=== PATIENT | male | born 1945 | race Caucasian/White ===

== ENCOUNTER → 2019-03-26 | Outpatient (CLI) | payer MEDICARE ==
[~2019-03-26] MED LIST: 'PARAFON FORTE500 M1 PO; 'zithromax250 MG PO; ACYCLOVIR400 MG PO; ADVAIR 250/501 EA INH; ALBUTEROL0.09 MG/Ac INH; ALBUTEROL2.5 MG/0.5 INH; AMBIEN10 M1 PO; ASPIRIN325 MG PO; AUGMENTIN 875 M1 TAB PO; BACTRIM DS 8001 TA1 PO; BENZTROPINE1 MG PO; CIPRO500 MG PO; CIPROFLOXACIN500 MG PO; CLARITIN10 MG PO; COGENTIN1 MG PO; DUONEB 3 MG/3 ML3 M1 INH; FIORICET 325 MG1 TAB PO; FLOMAX0.4 MG PO; FLUOXETINE HCL40 MG PO; GRALISE300 M1 PO; HIGH BLOOD PRESSURE; HYDROCODONE BIT1 T11 PO; HYTRIN1 M1 PO; KEFLEX500 MG PO; KLONOPIN0.5 MG PO; LEVOFLOXACIN500 MG PO; LEVOTHYROXIN0.075 MG PO; LEVOTHYROXINE75 MCG PO; LIPITOR40 MG PO; LOMOTIL 60ML 6060 ML PO; LUMIGAN; LUMIGAN 2.5 ML2.5 ML OPH; LUMIGAN50 DRP OPH; MACROBID100 M1 PO; METOPROLOL SR50 MG PO; METOPROLOL SUCC50 M1 PO; MIRAPEX0.5 MG PO; MOBIC15 MG PO; MUCINEX600 MG PO; MYCELEX PO; Motrin,Rufen800 MG PO; NAPROXEN D/R500 MG PO; NEURONTIN300 MG PO; NICODERM C21 MG/242 TD; NICODERM21 MG/24 H TD; NORCO 10-325 T1 EACH PO; NORCO 325 MG-51 TAB PO; NORTRIPTYLINE10 MG PO; NORTRIPTYLINE25 M1 PO; OYSTER SHELL C500 M2 PO; OYSTER SHELL CALCIUM; PERCOCET 325 MG1 TA2 PO; PERCOCET 325 MG1 TA5 PO; PERCOCET 325 MG1 TA7 PO; PHENERGAN W/DM120 ML PO; PREDNICOT10 MG PO; PREDNICOT20 MG PO; PREDNISONE5 MG PO; PROAIR HFA0.09 MG/AC IH; PROAIR HFA0.09 MG/AC INH; PROAIR HFA8.5 GM INH; PROCTOZONE-HC2.5% RC; PROZAC10 MG PO; PROZAC20 MG PO; RISPERDAL1 MG PO; RISPERIDONE1 MG PO; RISPERIDONE4 M1 PO; SEROQUEL100 MG PO; SYNTHROID,LEVO75 MCG PO; THYROID; TOPROL XL50 M1 PO; TRAMADOL HCL50 MG PO; TRAZADONE PO; ULTRAM50 MG PO; VALIUM10 MG PO; VALIUM2 MG PO; VENTOLIN H0.09 MG/AC INH; VICO10300 PO; VISTARIL25 M2 PO; VOLTAREN50 MG PO; ZITHROMAX Z PA250 MG PO; Zofran4 MG PO; [UNRECOGNIZED DRUG - REMARK]; [UNRECOGNIZED DRUG - REMARK]
--- NOTE | ~2019-03-26 | ST ---
[place], [place] EXERCISE STRESS TEST REPORT NAME: MIKE WOOD [facility] #: [id number] UNIT #: [id number] ROOM: DOCTOR: MICHELE DOTY BIRTHDATE: [birth year] DOS: 03/26/2019 INDICATION: Chest pain. PROTOCOL: Walking regadenoson SPECT myocardial perfusion imaging. Baseline EKG showed sinus rhythm with a rate of 63 beats per minute with a right bundle-branch block. Otherwise, normal axis. No resting ST or T-wave abnormalities. Baseline blood pressure was 136/78. At very low intensity exercise, 0.4 mg of regadenoson was injected per protocol. This was followed by radiotracer injection. The patient reported no chest pain. Stress EKG showed no evidence of ischemia and no arrhythmias were noted. IMPRESSION: 1. No evidence of regadenoson-induced ischemia on stress EKG. 2. Baseline right bundle-branch block. 3. Nuclear images will be reported separately. Dr. MICHELE DOTY MD CM:STRESS:EXERCISE STRESS TEST REPORT [id number] MICHELE DOTY
--- NOTE | 2019-03-26 09:40 | NUR ---
INFORMED SIGNED CONSENT OBTAINED FOR LEXISCAN STRESS TEST WITH DR DOTY. RESTING EKG RBBB HR 63 BP 136/78. PULSE OX 99% LUNGS CLEARLY DIMINISHED. PT COMPLETED ONE MINUTE OF A LEXISCAN WALKING PROTCOL WITH PT WALKING AT AT 1.7MPH DOWN TO 1.O MPH. AND RECEIVING LEXISCAN 0.4MG IV OVER 10 SECONDS. NO ARRHYTHMIAS NOTED, NO ST CHANGES SEEN. LAST RECOVERY HR OF 76 BP 126/70. PT IN STABLE CONDITION, AWAITING NUCLEAR IMAGES.
== END | disposition home or self-care (01) ==
LOC: CARD 00:28
DX: R07.9 Chest pain, unspecified (principal); R53.81 Other malaise

== ENCOUNTER → 2019-04-06 | Outpatient (CLI) | payer MEDICARE, MEDICAID ==
[~2019-04-06] MED LIST changes: +LOMOTIL 2.5-0.1 EACH PO; +METOPROLOL TART50 M1 PO; +NORCO 5-325 TA1 EACH PO; +NORTRIPTYLINE H75 M1 PO
--- NOTE | ~2019-04-06 | EKG ---
[place], [place] ELECTROCARDIOGRAM REPORT NAME: MIKE WOOD UNIT #: [id number] ROOM: DOCTOR: EPIPHANY DRAFT REPORT BIRTHDATE: [birth year] [facility] Test Date: 2019-04-06 Test Time: 14:24:12 Pat Name: MIKE WOOD Department: Room: Gender: Net Developer: Ayanna Olmos : 1945 Requested By: RUY OLIVERA Order Number: [id number] Reading MD: Austin Holly Measurements Intervals [place] Rate: 76 P: 52 NE: 182 QRS: 23 QRSD: 130 T: 10 QT: 395 QTc: 445 Interpretive Statements Sinus rhythm Right bundle branch block Baseline wander in lead(s) V2,V3 Electronically Signed On 04-06-2019 12:18:28 PDT by Austin Holly CM:EKGRPT:ELECTROCARDIOGRAM REPORT [id number] RUY ALEMAN DRAFT REPORT RUY OLIVERA MD
[2019-04-06 14:39] LABS: BASO # 0.1 10*3/uL (0.0-0.1); BASO % 0.8 % (0.0-1.0); EOS # 0.2 10*3/uL (0.0-0.4); EOS % 2.6 % (1.0-4.0); HEMATOCRIT 37.7 % (42.0-52.0); HEMOGLOBIN 12.4 g/dl (14.0-18.0); LYMPH # 2.4 10*3/uL (1.3-4.4); LYMPH % 32.3 % (27.0-41.0); MEAN CELL VOLUME 95.2 fl (80.0-94.0); MEAN CORPUSCULAR HGB 31.3 pg (27.0-31.0); MEAN CORPUSCULAR HGB CONC 32.9 g/dl (33.0-37.0); MEAN PLATELET VOLUME 9.8 fl (9.6-12.3); MONO # 0.5 10*3/uL (0.1-1.0); MONO % 7.3 % (3.0-9.0); NEUT # 4.1 10*3/uL (2.3-7.9); NEUT % 56.2 % (47.0-73.0); PLATELET COUNT AUTOMATED 220 10*3/uL (130-400); RED BLOOD COUNT 3.96 10*6/uL (4.50-5.90); RED CELL DISTRI WIDTH 13.2 % (0-14.5); WHITE BLOOD COUNT 7.3 10*3/uL (4.8-10.8)
[2019-04-06 14:49] LABS: ACT PARTIAL THROMBO TIME 25.6 SECONDS (20.0-32.1); INTERNATIONAL NORM RATIO 0.9 (2.0-3.5)
[2019-04-06 14:52] LABS: BUN 25 mg/dl (7-24); CHLORIDE 109 mmol/L (98-107); CREATININE 0.79 mg/dL (0.70-1.30); POTASSIUM 4.1 mmol/L (3.5-5.1); SODIUM 139 mmol/L (136-145)
[2019-04-06 15:42] LABS: BILIRUBIN NEGATIVE (NEGATIVE); BLOOD NEGATIVE (NEGATIVE); CLARITY CLEAR (CLEAR); COLOR YELLOW (YELLOW); GLUCOSE NEGATIVE (NEGATIVE); KETONE NEGATIVE (NEGATIVE); LEUKO ESTERASE NEGATIVE (NEGATIVE); NITRITE NEGATIVE (NEGATIVE); PH 6.5 (5.0-9.0); UROBILINOGEN 0.2 E.U./dl (0.2-1.0)
== END | disposition home or self-care (01) ==
LOC: LAB 13:49
PROVIDERS: Surgery
DX: K80.20 Calculus of gallbladder without cholecystitis without obstruction (principal)

== ENCOUNTER → 2019-04-12 | Day surgery (SDC) | payer MEDICARE, MEDICAID ==
[2019-04-06 14:35] VITALS: BP 122/86
[~2019-04-12] VITALS: Ht 175.2 cm; Wt 77.1 kg
[2019-04-12 07:19] VITALS: BP 126/78
[2019-04-12 09:26] VITALS: BP 144/79
[2019-04-12 09:41] VITALS: BP 135/68
[2019-04-12 09:53] VITALS: BP 123/62
[2019-04-12 10:04] VITALS: BP 136/63
[2019-04-12 10:19] VITALS: BP 123/75
== END | disposition home or self-care (01) ==
LOC: SDC 04-06 14:00
DX: K80.10 Calculus of gallbladder with chronic cholecystitis without obstruction (principal); M19.90 Unspecified osteoarthritis, unspecified site; G43.909 Migraine, unspecified, not intractable, without status migrainosus; G47.00 Insomnia, unspecified; J44.9 Chronic obstructive pulmonary disease, unspecified; E07.9 Disorder of thyroid, unspecified; H40.9 Unspecified glaucoma; I10 Essential (primary) hypertension; F17.210 Nicotine dependence, cigarettes, uncomplicated; Z98.1 Arthrodesis status; F32.9 Major depressive disorder, single episode, unspecified; Z96.649 Presence of unspecified artificial hip joint; Z98.890 Other specified postprocedural states; Z88.1 Allergy status to other antibiotic agents; Z88.8 Allergy status to other drugs, medicaments and biological substances

== ENCOUNTER 2019-07-28 14:21 | Emergency (ER) | payer MEDICARE, MEDICAID ==
[~2019-07-28] VITALS: Ht 175.2 cm; Wt 86.2 kg
[2019-07-28 14:31] VITALS: BP 140/76
[2019-07-28] MEDS ORDERED: NORCO 5-325 TA1 EACH PO (16:28)
== END 2019-07-28 16:25 | disposition home or self-care (01) ==
LOC: ED 14:21
DX: S16.1XXA Strain of muscle, fascia and tendon at neck level, initial encounter (principal); S30.0XXA Contusion of lower back and pelvis, initial encounter; I10 Essential (primary) hypertension; J44.9 Chronic obstructive pulmonary disease, unspecified; Z88.6 Allergy status to analgesic agent; Z88.8 Allergy status to other drugs, medicaments and biological substances; Z88.1 Allergy status to other antibiotic agents; Z79.899 Other long term (current) drug therapy; W01.0XXA Fall on same level from slipping, tripping and stumbling without subsequent striking against object, initial encounter; Y93.89 Activity, other specified; Y92.098 Other place in other non-institutional residence as the place of occurrence of the external cause; Y99.8 Other external cause status

== ENCOUNTER → 2019-07-30 | Outpatient (CLI) | payer MEDICARE, MEDICAID ==
[2019-07-30 09:52] LABS: BASO # 0.1 10*3/uL (0.0-0.1); BASO % 0.6 % (0.0-1.0); EOS # 0.2 10*3/uL (0.0-0.4); EOS % 2.6 % (1.0-4.0); HEMATOCRIT 41.1 % (42.0-52.0); LYMPH # 2.4 10*3/uL (1.3-4.4); LYMPH % 29.7 % (27.0-41.0); MEAN CELL VOLUME 93.2 fl (80.0-94.0); MEAN CORPUSCULAR HGB 29.5 pg (27.0-31.0); MEAN CORPUSCULAR HGB CONC 31.6 g/dl (33.0-37.0); MEAN PLATELET VOLUME 9.4 fl (9.6-12.3); MONO # 0.5 10*3/uL (0.1-1.0); MONO % 5.8 % (3.0-9.0); NEUT # 4.9 10*3/uL (2.3-7.9); NEUT % 60.2 % (47.0-73.0); PLATELET COUNT AUTOMATED 220 10*3/uL (130-400); RED BLOOD COUNT 4.41 10*6/uL (4.50-5.90); RED CELL DISTRI WIDTH 13.6 % (0-14.5); WHITE BLOOD COUNT 8.1 10*3/uL (4.8-10.8)
[2019-07-30 10:24] LABS: ALBUMIN 3.5 gm/dl (3.1-4.5); BUN 16 mg/dl (7-24); CHLORIDE 107 mmol/L (98-107); POTASSIUM 4.7 mmol/L (3.5-5.1); SODIUM 141 mmol/L (136-145)
[2019-07-30 10:31] LABS: ALKALINE PHOSPHATASE 76 U/L (45-117); CREATININE 1.08 mg/dL (0.70-1.30); SGOT/AST 23 IU/L (3-35); SGPT/ALT 35 U/L (12-78); TOTAL PROTEIN 6.9 gm/dL (6.4-8.2)
[2019-07-30 10:33] LABS: ACT PARTIAL THROMBO TIME 25.9 SECONDS (20.0-32.1); INTERNATIONAL NORM RATIO 0.9 (2.0-3.5)
[2019-07-30 11:27] LABS: BILIRUBIN NEGATIVE (NEGATIVE); BLOOD NEGATIVE (NEGATIVE); CLARITY CLOUDY (CLEAR); COLOR YELLOW (YELLOW); GLUCOSE NEGATIVE (NEGATIVE); KETONE NEGATIVE (NEGATIVE); LEUKO ESTERASE 2+ (NEGATIVE); NITRITE POSITIVE (NEGATIVE); PH 6.5 (5.0-9.0); UROBILINOGEN 0.2 E.U./dl (0.2-1.0)
[2019-07-30 13:36] LABS: BACTERIA 3+; CALCIUM OXALATE CRYSTALS 4+; WBC TNTC wbc/hpf (0-5)
== END | disposition home or self-care (01) ==
LOC: LAB 08:54
PROVIDERS: Nurse Practitioner Family
DX: Z12.5 Encounter for screening for malignant neoplasm of prostate (principal); Z01.818 Encounter for other preprocedural examination; I10 Essential (primary) hypertension; R10.9 Unspecified abdominal pain

== ENCOUNTER → 2019-08-13 | Outpatient (CLI) | payer MEDICARE, MEDICAID ==
[~2019-08-13] MED LIST changes: +FINASTERIDE5 M1 PO; +NEURONTIN100 MG PO; +VANCO IV; +ZOSYN 3.373.375 GM/5 IV
[2019-08-13 15:55] LABS: BILIRUBIN NEGATIVE (NEGATIVE); BLOOD NEGATIVE (NEGATIVE); CLARITY CLOUDY (CLEAR); COLOR YELLOW (YELLOW); GLUCOSE NEGATIVE (NEGATIVE); KETONE NEGATIVE (NEGATIVE); LEUKO ESTERASE 2+ (NEGATIVE); NITRITE NEGATIVE (NEGATIVE); SPECIFIC GRAVITY 1.015 (1.005-1.030); UROBILINOGEN 0.2 E.U./dl (0.2-1.0)
[2019-08-13 15:56] LABS: BACTERIA 3+; CALCIUM OXALATE CRYSTALS 1+; WBC 51-100 wbc/hpf (0-5)
== END | disposition home or self-care (01) ==
LOC: LAB 15:03
PROVIDERS: Nurse Practitioner Family
DX: N39.0 Urinary tract infection, site not specified (principal)

== ENCOUNTER 2019-09-10 18:27 | Inpatient (IN) | payer OTHER, MEDICAID ==
[~2019-09-10] VITALS: Ht 175.3 cm; Wt 91.7 kg
[~2019-09-10 18:27] MED LIST changes: -FINASTERIDE5 M1 PO; -NEURONTIN100 MG PO; -VANCO IV; -ZOSYN 3.373.375 GM/5 IV
[2019-09-10 18:30] VITALS: BP 118/71
--- NOTE | 2019-09-10 18:56 | NUR ---
BG 131 PER EMS
[2019-09-10 19:26] LABS: BASO # 0.1 10*3/uL (0.0-0.1); BASO % 0.8 % (0.0-1.0); EOS # 0.2 10*3/uL (0.0-0.4); EOS % 3.5 % (1.0-4.0); HEMATOCRIT 34.5 % (42.0-52.0); HEMOGLOBIN 11.4 g/dl (14.0-18.0); LYMPH # 1.6 10*3/uL (1.3-4.4); MEAN CELL VOLUME 90.3 fl (80.0-94.0); MEAN CORPUSCULAR HGB 29.8 pg (27.0-31.0); MEAN PLATELET VOLUME 9.7 fl (9.6-12.3); MONO # 0.6 10*3/uL (0.1-1.0); MONO % 9.2 % (3.0-9.0); NEUT % 60.9 % (47.0-73.0); PLATELET COUNT AUTOMATED 224 10*3/uL (130-400); RED BLOOD COUNT 3.82 10*6/uL (4.50-5.90); WHITE BLOOD COUNT 6.5 10*3/uL (4.8-10.8)
[2019-09-10 19:42] LABS: ALBUMIN 3.1 gm/dl (3.1-4.5); ALKALINE PHOSPHATASE 86 U/L (45-117); BUN 26 mg/dl (7-24); CHLORIDE 106 mmol/L (98-107); CKMB 2.4 ng/ml (0.5-3.6); CPK 86 U/L (39-308); CREATININE 0.79 mg/dL (0.70-1.30); LIPASE 98 U/L (73-393); POTASSIUM 3.8 mmol/L (3.5-5.1); SGOT/AST 18 IU/L (3-35); SGPT/ALT 23 U/L (12-78); SODIUM 139 mmol/L (136-145); TOTAL PROTEIN 6.7 gm/dL (6.4-8.2)
[2019-09-10 19:45] LABS: TROPONIN I < 0.015 ng/ml (<0.045)
[2019-09-10 22:10] VITALS: BP 124/59
--- NOTE | 2019-09-10 22:21 | NUR ---
A 74, admitted to , under the services of FARZAD Lizarraga DO with a diagnosis of SYNCOPE. Chief complaint is FEEL WALKING UP STAIRS. Patient arrived via ambulance from ER. Monitor applied. Initial assessment completed. Vital signs taken and recorded. FARZAD LIZARRAGA DO notified of admission to the unit. Orders received. See assessment for past medical history, medications and allergies. Patient and/or family oriented to unit. [facility] visitation policy reviewed. Clothing/patient valuable form completed. WILL MAHONEY
[2019-09-10] MEDS ORDERED: FLOMAX0.4 MG PO (22:29)
[2019-09-10] MEDS ORDERED: FINASTERIDE5 M1 PO (22:30)
[2019-09-10] MEDS ORDERED: NEURONTIN100 MG PO (22:30)
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
[2019-09-11] VITALS: BP 124/59
--- NOTE | 2019-09-11 00:05 | NUR ---
INFECTIOUS DISEASE ANSWERING SERVICE NOTIFIED OF CONSULT
--- NOTE | 2019-09-11 00:11 | NUR ---
DR GREGORY AWARE OF RECOMMENDATIONS PER DR WOOD
--- NOTE | 2019-09-11 00:11 | NUR ---
PT TAKEN OFF FLOOR FOR CT
--- NOTE | 2019-09-11 00:33 | NUR ---
MORPHINE PROVIDED FOR RT HIP AND SCROTAL PAIN
--- NOTE | 2019-09-11 01:09 | NUR ---
PHOTOS TAKEN OF SCROTUM. CULTURE OBTAINED. CLEANSED AND ABD APPLIED FOR PURULENT DRAINAGE.
--- NOTE | 2019-09-11 01:29 | NUR ---
PATIENT STATES PAIN HAS RESOLVED
--- NOTE | 2019-09-11 03:29 | NUR ---
ANSWERING SERVICE NOTIFIED OF CONSULT
--- NOTE | 2019-09-11 05:58 | NUR ---
MIKE WOOD [id number] Please refer to the physician's history and physical for past medical history, comorbid conditions, and allergies. Diagnosis: SYNCOPE AND COLLAPSE Reid Score: 16,AT RISK WOUND DESCRIPTIONS: Wound Number: 1 Location of the wound: right scrotum Type of wound: surgical Thickness: Partial Size: 6.0cm x 3.0cm x 0.4cm Tunneling: none Undermining: none Sinus Tract: none Presence of Exudate: Serosanguineous Amount: Light Color: Red Odor: None Periwound Skin Appearance: Normal Wound edges: approximated with 2 sutures. 1 white linear fragment Pain (associated with wound): none at time of assessment How does patient state this happened? pt stated he had surgery in [place] on august 21 with Surface the patient is resting on: Position Pro SKIN PREVENTION RECOMMENDATION: 1. Pressure redistribution support surface as appropriate 2. Elevate heels 3. Remove boots/TEDS every shift and reapply 4. Head of bed 30 degrees as tolerated 5. Assess nutrition and hydration 6. Manage moisture 7. Avoid the use of containment devices while in bed 8. Use absorptive products on surfaces limit layers of linens on bed 9. Turn and reposition every 1-2 hours in bed and every 1 hour in chair as tolerated 10. Weight shifts every 15 minutes while up in chair 11. Offloading with pillows or device to keep heels elevated off bed 12. Monitor skin at least every shift 13. Inspect under medical devices twice a day WOUND TREATMENT RECOMMENDATIONS: Cleanse right scrotum with betadine and cover with adaptic and apply mesh panties.
[2019-09-11 07:06] LABS: BASO # 0.1 10*3/uL (0.0-0.1); BASO % 0.9 % (0.0-1.0); EOS # 0.4 10*3/uL (0.0-0.4); EOS % 7.2 % (1.0-4.0); HEMOGLOBIN 10.2 g/dl (14.0-18.0); LYMPH # 1.7 10*3/uL (1.3-4.4); LYMPH % 28.8 % (27.0-41.0); MEAN CORPUSCULAR HGB 29.3 pg (27.0-31.0); MEAN CORPUSCULAR HGB CONC 31.9 g/dl (33.0-37.0); MEAN PLATELET VOLUME 9.7 fl (9.6-12.3); MONO # 0.6 10*3/uL (0.1-1.0); MONO % 9.4 % (3.0-9.0); NEUT # 3.1 10*3/uL (2.3-7.9); PLATELET COUNT AUTOMATED 220 10*3/uL (130-400); RED BLOOD COUNT 3.48 10*6/uL (4.50-5.90); RED CELL DISTRI WIDTH 14.3 % (0-14.5); WHITE BLOOD COUNT 5.8 10*3/uL (4.8-10.8)
[2019-09-11 07:14] LABS: ACT PARTIAL THROMBO TIME 30.8 SECONDS (20.0-32.1)
[2019-09-11 07:22] LABS: ALBUMIN 2.9 gm/dl (3.1-4.5); ALKALINE PHOSPHATASE 74 U/L (45-117); BUN 18 mg/dl (7-24); CHLORIDE 109 mmol/L (98-107); CHOLESTEROL 121 mg/dL (<200); CREATININE 0.71 mg/dL (0.70-1.30); FREE T4 1.36 ng/dl (0.76-1.46); HDL CHOLESTEROL 35 mg/dl (40-60); LDL CHOLESTEROL 69 mg/dL (9-159); PHOSPHOROUS 3.7 mg/dL (2.5-4.9); POTASSIUM 3.8 mmol/L (3.5-5.1); SGOT/AST 13 IU/L (3-35); SGPT/ALT 20 U/L (12-78); SODIUM 139 mmol/L (136-145); TOTAL PROTEIN 5.9 gm/dL (6.4-8.2); TRIGLYCERIDES 83 mg/dl (<150); VLDL CHOLESTEROL 17 mg/dL (6-40)
[2019-09-11 07:27] LABS: THYROID STIM HORMONE (HS) 0.997 uIU/ml (0.358-4.75)
[2019-09-11 08:00] VITALS: BP 108/92
--- NOTE | 2019-09-11 08:15 | NUR ---
PT REQUESTED AND WAS MEDICATED WITH MORPHINE IV FOR C/O HIP PAIN. RESP EASY AND NONLABORED ON RA. IVF INFUSING PER ORDERS. CALL LIGHT IN REACH. WILL MONITOR
[2019-09-11 08:26] LABS: VITAMIN D, 25-HYDROXY 38.6 ng/mL (30-100)
--- NOTE | 2019-09-11 09:00 | NUR ---
Night Stocker in to talk to patient. Patient states lives at home with friend. There are 4 steps in the home. Physician: evan farias [facility] Home health services: none Patient's level of ADLs: INDEPENDENT Patient has working utilities: all working DME: none Follow-up physician's appointment after d/c: will be made by hospistalist nurse director upon discharge Does patient want to access PORTAL?: no Discharge plan discussed with patient, he lives at home with friend, he states he is independent in adls and ambulation, he states he will return home when medically stable and denies any home needs, case managment will follow. KAITLIN LORENZANA
--- NOTE | 2019-09-11 09:20 | NUR ---
MEDICATION EFFECTIVE PER PT
--- NOTE | 2019-09-11 10:37 | NUR ---
Dr. Jamil notified of wound care recommendations.
[2019-09-11 12:00] VITALS: BP 109/71
--- NOTE | 2019-09-11 14:41 | NUR ---
Spoke to Tamica Rubalcava at [facility] regarding starting a prior authorization for transfer to a higher level of care. Auth # [id number]. Notified Sherron at [facility], . Notified park warden. Notified patient's insurance is set to terminate 10/15 that he needs to reach out to his corrections caseworker at [facility].
[2019-09-11] MEDS ORDERED: ZOSYN 3.373.375 GM/5 IV (14:58)
[2019-09-11] MEDS ORDERED: VANCO IV (14:58)
--- NOTE | 2019-09-11 15:52 | NUR ---
Discharge instructions reviewed with patient/family. Patient receptive and verbalizes understanding. Follow-up care arranged. Written instructions given to patient/family. DENNIS HANSEN
--- NOTE | 2019-09-11 15:52 | NUR ---
REPORT CALLED TO TIM
== END 2019-09-11 15:52 | disposition other institution (70) | DRG 312 ==
LOC: ED 18:27 → EDHOLD 20:57 → 4E 20:57
PROVIDERS: Internal Medicine; Nurse Practitioner Family; ADMIT Internal Medicine
DX: R55 Syncope and collapse (principal); T83.61XA Infection and inflammatory reaction due to implanted penile prosthesis, initial encounter; F32.9 Major depressive disorder, single episode, unspecified; D72.810 Lymphocytopenia; Z71.6 Tobacco abuse counseling; J44.9 Chronic obstructive pulmonary disease, unspecified; M54.9 Dorsalgia, unspecified; G89.29 Other chronic pain; I10 Essential (primary) hypertension; E03.9 Hypothyroidism, unspecified; F17.210 Nicotine dependence, cigarettes, uncomplicated; R07.89 Other chest pain; N40.0 Benign prostatic hyperplasia without lower urinary tract symptoms; Z96.641 Presence of right artificial hip joint; R73.9 Hyperglycemia, unspecified; I25.10 Atherosclerotic heart disease of native coronary artery without angina pectoris; K57.90 Diverticulosis of intestine, part unspecified, without perforation or abscess without bleeding; Z98.1 Arthrodesis status; Z79.899 Other long term (current) drug therapy; Z88.6 Allergy status to analgesic agent; Z88.1 Allergy status to other antibiotic agents; Z88.8 Allergy status to other drugs, medicaments and biological substances; Z82.49 Family history of ischemic heart disease and other diseases of the circulatory system

== ENCOUNTER 2019-09-25 13:03 | Observation (INO) | payer OTHER, MEDICAID ==
[~2019-09-25] VITALS: Ht 175.2 cm; Wt 91.7 kg
[~2019-09-25 13:03] MED LIST changes: +FINASTERIDE5 M1 PO; +NEURONTIN100 MG PO; +VANCO IV; +ZOSYN 3.373.375 GM/5 IV
[2019-09-25 13:13] VITALS: BP 124/61
[2019-09-25 14:03] LABS: BASO % 0.5 % (0.0-1.0); EOS # 0.1 10*3/uL (0.0-0.4); EOS % 1.5 % (1.0-4.0); HEMOGLOBIN 11.5 g/dl (14.0-18.0); LYMPH # 1.7 10*3/uL (1.3-4.4); LYMPH % 20.5 % (27.0-41.0); MEAN CELL VOLUME 91.6 fl (80.0-94.0); MEAN CORPUSCULAR HGB 29.3 pg (27.0-31.0); MEAN CORPUSCULAR HGB CONC 31.9 g/dl (33.0-37.0); MEAN PLATELET VOLUME 9.8 fl (9.6-12.3); MONO # 0.5 10*3/uL (0.1-1.0); MONO % 6.5 % (3.0-9.0); NEUT # 5.8 10*3/uL (2.3-7.9); NEUT % 70.4 % (47.0-73.0); PLATELET COUNT AUTOMATED 311 10*3/uL (130-400); RED BLOOD COUNT 3.93 10*6/uL (4.50-5.90); RED CELL DISTRI WIDTH 14.3 % (0-14.5); WHITE BLOOD COUNT 8.2 10*3/uL (4.8-10.8)
[2019-09-25 14:10] VITALS: BP 124/68
[2019-09-25 14:12] LABS: ACT PARTIAL THROMBO TIME 26.2 SECONDS (20.0-32.1)
[2019-09-25 14:17] LABS: LIPASE 129 U/L (73-393)
[2019-09-25 14:19] LABS: ALBUMIN 3.4 gm/dl (3.1-4.5); ALKALINE PHOSPHATASE 86 U/L (45-117); BUN 20 mg/dl (7-24); CHLORIDE 105 mmol/L (98-107); CREATININE 0.93 mg/dL (0.70-1.30); POTASSIUM 3.9 mmol/L (3.5-5.1); SGOT/AST 16 IU/L (3-35); SGPT/ALT 22 U/L (12-78); SODIUM 136 mmol/L (136-145); TOTAL PROTEIN 6.8 gm/dL (6.4-8.2)
[2019-09-25 14:24] LABS: TROPONIN I < 0.015 ng/ml (<0.045)
--- NOTE | 2019-09-25 14:30 | NUR ---
IV MORPHINE ADMINISTERED PER ORDER FOR C/O HEADACHE. DENIES CHEST PAIN AT THIS TIME. PHONE CALL PLACED TO FAMILY MEMEBER JULIUS AT HIS REQUEST, SHE STATES SHE IS AWARE HE IS HERE. PT WAS NOTIFIED.
[2019-09-25 16:30] VITALS: BP 135/74
--- NOTE | 2019-09-25 17:10 | NUR ---
A 74, admitted to , under the services of BRUNA Echeverria DO with a diagnosis of CHEST PAIN. Chief complaint is CHEST PAIN. Patient arrived via bed from ER. Monitor applied. Initial assessment completed. Vital signs taken and recorded. BRUNA ECHEVERRIA DO notified of admission to the unit. Orders received. See assessment for past medical history, medications and allergies. Patient and/or family oriented to unit. [facility] visitation policy reviewed. Clothing/patient valuable form completed. MICHELE BARRETT
[2019-09-25 17:12] VITALS: BP 132/68
--- NOTE | 2019-09-25 18:56 | NUR ---
MED LIST REQUESTED FROM TRAN KAUR
--- NOTE | 2019-09-25 19:36 | NUR ---
ALERT PLEASANT. C/O PAIN IN CHEST, BACK, ARM, HAND, HEAD RATED "8" OFFERED NORCO AND PATIENT STATED "THAT'S NOT GOING TO GET IT" MORPHINE GIVEN PER ORDER FOR PAIN. SEE MAR. COVERED PATIENT WITH WARM BLANKETS FOR COMFORT.
[2019-09-25 20:00] VITALS: BP 127/64
--- NOTE | 2019-09-25 20:30 | NUR ---
PER PT. MORPHINE HELPING WITH PAIN.
--- NOTE | 2019-09-25 22:39 | NUR ---
NORCO GIVEN PER ORDER FOR PAIN IN CHECK,BACK,ARM,HAND PER PT. RATED "6-7". SEE MAR.
--- NOTE | 2019-09-25 23:35 | NUR ---
NORCO NOT EFFECTIVE FOR PAIN PER PT.
--- NOTE | 2019-09-25 23:59 | NUR ---
MORPHINE GIVEN PER ORDER FOR PAIN IN ARM/ELBOW RATED "7-8" SEE MAR.
[2019-09-26] VITALS: BP 144/66
--- NOTE | 2019-09-26 00:55 | NUR ---
MORPHINE EFFECTIVE FOR REDUCING PAIN IN ELBOW PER PT. BUT HE STATED "THEY NEED TO CHANGE THIS MORPHIN TO DILAUDID AND THEN DO OXY INBETWEEN FOR THIS PAIN".
--- NOTE | 2019-09-26 01:35 | NUR ---
24 HR chart check completed.
--- NOTE | 2019-09-26 02:08 | NUR ---
PT. AWAKE SITTING AT SIDE OF BED C/O PAIN IN LEFT SHOULDER/CHEST/BACK /ARM RATED "9" TO SOON FOR MORPHINE NORCO GIVEN PER ORDER.
--- NOTE | 2019-09-26 03:15 | NUR ---
YUDI EFFECTIVE PATIENT SLEEPING.
--- NOTE | 2019-09-26 04:24 | NUR ---
PT. AWAKE AND C/O PAIN RATED "7-8" LEFT CHEST/SHOULDER/ARM/BACK, MORPHINE GIVEN PER ORDER FOR PAIN. SEE MAR.
--- NOTE | 2019-09-26 05:20 | NUR ---
MORPHINE EFFECTIVE FOR PAIN PATIENT ABLE TO REST.
--- NOTE | 2019-09-26 06:20 | NUR ---
NORCO GIVEN FOR LEFT CHEST/SHOULDER/BACK/ARM RATED "5" SEE MAR.
[2019-09-26 06:32] LABS: BASO # 0.1 10*3/uL (0.0-0.1); BASO % 0.9 % (0.0-1.0); EOS # 0.2 10*3/uL (0.0-0.4); EOS % 3.4 % (1.0-4.0); HEMATOCRIT 34.9 % (42.0-52.0); LYMPH # 2.2 10*3/uL (1.3-4.4); LYMPH % 33.1 % (27.0-41.0); MEAN CELL VOLUME 92.3 fl (80.0-94.0); MEAN CORPUSCULAR HGB 29.1 pg (27.0-31.0); MEAN CORPUSCULAR HGB CONC 31.5 g/dl (33.0-37.0); MEAN PLATELET VOLUME 9.7 fl (9.6-12.3); MONO # 0.6 10*3/uL (0.1-1.0); MONO % 8.3 % (3.0-9.0); NEUT # 3.6 10*3/uL (2.3-7.9); NEUT % 53.6 % (47.0-73.0); PLATELET COUNT AUTOMATED 262 10*3/uL (130-400); RED BLOOD COUNT 3.78 10*6/uL (4.50-5.90); RED CELL DISTRI WIDTH 14.4 % (0-14.5); WHITE BLOOD COUNT 6.8 10*3/uL (4.8-10.8)
[2019-09-26] MEDS ORDERED: ONDANSETRON HYDR4 MG PO (06:42)
[2019-09-26] MEDS ORDERED: CIPROFLOXACIN500 M4 PO (06:46)
[2019-09-26] MEDS ORDERED: HYDROCODONE-AC1 EAC1 PO (06:47)
[2019-09-26 06:54] LABS: ALBUMIN 3.3 gm/dl (3.1-4.5); CHLORIDE 106 mmol/L (98-107); CREATININE 0.82 mg/dL (0.70-1.30); POTASSIUM 4.1 mmol/L (3.5-5.1); SGOT/AST 14 IU/L (3-35); SGPT/ALT 20 U/L (12-78); SODIUM 138 mmol/L (136-145); TOTAL PROTEIN 6.2 gm/dL (6.4-8.2)
[2019-09-26 06:56] LABS: ALKALINE PHOSPHATASE 77 U/L (45-117); BUN 18 mg/dl (7-24); PHOSPHOROUS 3.7 mg/dL (2.5-4.9)
[2019-09-26] MEDS ORDERED: VENT7GM INH (06:56)
[2019-09-26] MEDS ORDERED: LOMOTIL 2.5-0.1 EACH PO (07:31)
[2019-09-26 08:00] VITALS: BP 102/58
--- NOTE | 2019-09-26 09:07 | NUR ---
OILER HELPER met with patient at bedside. OILER HELPER discussed housing issues that patient reported. While in the room a insurance case manager called and reported she had housing setup for him the previous day but patient refused and came to the hosptial. Patient was provided with phone number for housing agent to call and setup a correction that was previously setup for the day before. Patient will discharge on this date and OILER HELPER will provide any futher followup as needed.
--- NOTE | 2019-09-26 10:22 | NUR ---
PATIENT MEDICATED WITH IV MORPHINE FOR 8/10 PAIN IN BACK. .WILL MONITOR FOR EFFECTIVENESS.
--- NOTE | 2019-09-26 11:31 | NUR ---
LEFT MESSAGE WITH [employer] [employer] PER DIRECTION OF COUNCILING CENTER
--- NOTE | 2019-09-26 12:43 | NUR ---
CONTACTED [facility] IN [facility], PATIENT IS ABLE TO GO THERE THEY DO HAVE A MALE BED AVAILABLE, PT NOTIFIED AND AGREEING, PT SELF UP HIS OWN TRANSPORTATION TO [facility] AT 2PM, PT PROIVDED WITH TELEPHONE WILLIAMER AND ADDRESS TO [facility]
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
--- NOTE | 2019-09-26 13:00 | NUR ---
Discharge instructions reviewed with patient/family. Patient receptive and verbalizes understanding. Follow-up care arranged. Written instructions given to patient/family. MICHELE BARRETT
== END 2019-09-26 13:00 | disposition home or self-care (01) ==
LOC: ED 13:03 → 4E 16:01 → EDHOLD 16:01 → 4E 16:25
PROVIDERS: Emergency Medicine; Registered Nurse; ADMIT Internal Medicine
DX: R07.2 Precordial pain (principal); M25.512 Pain in left shoulder; J44.9 Chronic obstructive pulmonary disease, unspecified; I10 Essential (primary) hypertension; F32.9 Major depressive disorder, single episode, unspecified; R00.0 Tachycardia, unspecified; N40.0 Benign prostatic hyperplasia without lower urinary tract symptoms; E03.9 Hypothyroidism, unspecified

== ENCOUNTER 2021-10-28 05:34 | Inpatient (IN) | payer OTHER, MEDICAID ==
[~2021-10-28] VITALS: Ht 175.2 cm; Wt 111.6 kg
[~2021-10-28 05:34] MED LIST changes: +CIPROFLOXACIN500 M4 PO; +DULOXETINE HCL30 MG PO; +DULOXETINE HCL60 MG PO; +HYDROCODONE-AC1 EAC1 PO; +ONDANSETRON HYDR4 MG PO; +VENT7GM INH; +VRAYLAR3 MG PO
[2021-10-28 05:39] VITALS: BP 164/99
[2021-10-28 06:34] LABS: BASO # 0.1 10*3/uL (0.0-0.1); BASO % 0.7 % (0.0-1.0); EOS # 0.2 10*3/uL (0.0-0.4); HEMATOCRIT 37.9 % (42.0-52.0); LYMPH # 1.8 10*3/uL (1.3-4.4); LYMPH % 23.8 % (27.0-41.0); MEAN CORPUSCULAR HGB 29.5 pg (27.0-31.0); MEAN CORPUSCULAR HGB CONC 32.7 g/dl (33.0-37.0); MEAN PLATELET VOLUME 9.7 fl (9.6-12.3); MONO # 0.5 10*3/uL (0.1-1.0); MONO % 6.3 % (3.0-9.0); NEUT # 5.1 10*3/uL (2.3-7.9); NEUT % 66.7 % (47.0-73.0); PLATELET COUNT AUTOMATED 176 10*3/uL (130-400); RED BLOOD COUNT 4.21 10*6/uL (4.50-5.90); RED CELL DISTRI WIDTH 14.3 % (0-14.5); WHITE BLOOD COUNT 7.6 10*3/uL (4.8-10.8)
[2021-10-28 06:55] LABS: ALKALINE PHOSPHATASE 78 U/L (45-117); BUN 20 mg/dl (7-24); CHLORIDE 111 mmol/L (98-107); CREATININE 1.05 mg/dL (0.70-1.30); LIPASE 88 U/L (73-393); POTASSIUM 4.4 mmol/L (3.5-5.1); SGOT/AST 15 IU/L (3-35); SGPT/ALT 25 U/L (12-78); SODIUM 140 mmol/L (136-145); TOTAL PROTEIN 6.8 gm/dL (6.4-8.2)
[2021-10-28 07:48] VITALS: BP 146/73
[2021-10-28 07:48] LABS: BILIRUBIN Negative (Negative); BLOOD Negative (Negative); CLARITY Clear (Clear); COLOR Yellow (Yellow); GLUCOSE Negative (Negative); KETONE Negative (Negative); LEUKO ESTERASE Negative (Negative); NITRITE Negative (Negative); SPECIFIC GRAVITY 1.025 (1.001-1.030)
[2021-10-28 08:21] LABS: WBC TNTC wbc/hpf (0-5)
[2021-10-28 08:22] LABS: BACTERIA 1+
[2021-10-28 15:46] VITALS: BP 101/74
[2021-10-28 18:25] VITALS: BP 128/84
[2021-10-28 21:00] VITALS: BP 114/54
[2021-10-29] VITALS: BP 120/47
[2021-10-29 06:36] LABS: BASO % 0.5 % (0.0-1.0); EOS # 0.2 10*3/uL (0.0-0.4); EOS % 2.1 % (1.0-4.0); HEMATOCRIT 36.1 % (42.0-52.0); LYMPH # 1.8 10*3/uL (1.3-4.4); LYMPH % 23.1 % (27.0-41.0); MEAN CELL VOLUME 90.3 fl (80.0-94.0); MEAN CORPUSCULAR HGB CONC 33.2 g/dl (33.0-37.0); MEAN PLATELET VOLUME 10.1 fl (9.6-12.3); MONO # 0.6 10*3/uL (0.1-1.0); MONO % 7.2 % (3.0-9.0); NEUT # 5.2 10*3/uL (2.3-7.9); NEUT % 66.8 % (47.0-73.0); PLATELET COUNT AUTOMATED 161 10*3/uL (130-400); RED CELL DISTRI WIDTH 14.3 % (0-14.5); WHITE BLOOD COUNT 7.7 10*3/uL (4.8-10.8)
[2021-10-29 06:50] LABS: BUN 15 mg/dl (7-24); CHLORIDE 112 mmol/L (98-107); CREATININE 0.82 mg/dL (0.70-1.30); POTASSIUM 3.9 mmol/L (3.5-5.1); SODIUM 141 mmol/L (136-145)
[2021-10-29 08:00] VITALS: BP 129/57
[2021-10-29 12:00] VITALS: BP 121/50
[2021-10-29 16:00] VITALS: BP 129/51
[2021-10-29 20:00] VITALS: BP 99/53
[2021-10-30] VITALS: BP 135/75
[2021-10-30 06:30] LABS: BASO % 0.5 % (0.0-1.0); EOS # 0.1 10*3/uL (0.0-0.4); HEMATOCRIT 35.5 % (42.0-52.0); LYMPH # 1.6 10*3/uL (1.3-4.4); LYMPH % 24.9 % (27.0-41.0); MEAN CELL VOLUME 89.4 fl (80.0-94.0); MEAN CORPUSCULAR HGB CONC 32.4 g/dl (33.0-37.0); MONO # 0.5 10*3/uL (0.1-1.0); NEUT # 4.2 10*3/uL (2.3-7.9); NEUT % 64.8 % (47.0-73.0); PLATELET COUNT AUTOMATED 171 10*3/uL (130-400); RED BLOOD COUNT 3.97 10*6/uL (4.50-5.90); RED CELL DISTRI WIDTH 14.1 % (0-14.5); WHITE BLOOD COUNT 6.4 10*3/uL (4.8-10.8)
[2021-10-30 06:49] LABS: BUN 15 mg/dl (7-24); CHLORIDE 111 mmol/L (98-107); CREATININE 0.95 mg/dL (0.70-1.30); POTASSIUM 4.1 mmol/L (3.5-5.1); SODIUM 137 mmol/L (136-145)
[2021-10-30 08:00] VITALS: BP 112/86
[2021-10-30 16:00] VITALS: BP 146/88
[2021-10-31] VITALS: BP 137/69
[2021-10-31 06:20] LABS: BASO % 0.6 % (0.0-1.0); EOS # 0.2 10*3/uL (0.0-0.4); EOS % 2.5 % (1.0-4.0); HEMATOCRIT 36.1 % (42.0-52.0); LYMPH # 1.5 10*3/uL (1.3-4.4); MEAN CORPUSCULAR HGB 29.4 pg (27.0-31.0); MEAN CORPUSCULAR HGB CONC 32.7 g/dl (33.0-37.0); MEAN PLATELET VOLUME 10.1 fl (9.6-12.3); MONO # 0.6 10*3/uL (0.1-1.0); MONO % 9.1 % (3.0-9.0); NEUT % 63.5 % (47.0-73.0); PLATELET COUNT AUTOMATED 170 10*3/uL (130-400); RED BLOOD COUNT 4.01 10*6/uL (4.50-5.90); RED CELL DISTRI WIDTH 13.9 % (0-14.5); WHITE BLOOD COUNT 6.4 10*3/uL (4.8-10.8)
[2021-10-31 06:37] LABS: BUN 14 mg/dl (7-24); CHLORIDE 109 mmol/L (98-107); SODIUM 136 mmol/L (136-145)
[2021-10-31 08:00] VITALS: BP 137/69
[2021-10-31 12:00] VITALS: BP 135/54
[2021-10-31 16:00] VITALS: BP 142/63
[2021-11-01] VITALS: BP 121/49
[2021-11-01 08:00] VITALS: BP 140/63
[2021-11-01] MEDS ORDERED: NORTRIPTYLINE H10 M1 PO (08:07)
[2021-11-01] MEDS ORDERED: XIFAXAN550 MG PO (08:07)
[2021-11-01] MEDS ORDERED: CHOLESTYRAMINE L4 GM PO (08:07)
[2021-11-01] MEDS ORDERED: DELZICOL400 M2 PO (08:07)
== END 2021-11-01 10:25 | DRG 392 ==
LOC: ED 05:34 → 4E 10:43 → EDHOLD 10:43 → 4E 17:57
PROVIDERS: Emergency Medicine; ADMIT Internal Medicine; ATTEND Internal Medicine
DX: K52.839 Microscopic colitis, unspecified (principal); E03.9 Hypothyroidism, unspecified; N40.0 Benign prostatic hyperplasia without lower urinary tract symptoms; F32.A Depression, unspecified; I10 Essential (primary) hypertension; Z82.49 Family history of ischemic heart disease and other diseases of the circulatory system; Z88.6 Allergy status to analgesic agent; Z88.1 Allergy status to other antibiotic agents; Z88.8 Allergy status to other drugs, medicaments and biological substances; Z79.899 Other long term (current) drug therapy

== ENCOUNTER 2021-11-10 08:32 | Observation (INO) | payer OTHER, MEDICAID ==
[~2021-11-10] VITALS: Ht 175.3 cm; Wt 112.2 kg
[~2021-11-10 08:32] MED LIST changes: +CHOLESTYRAMINE L4 GM PO; +DELZICOL400 M2 PO; +NORTRIPTYLINE H10 M1 PO; +XIFAXAN550 MG PO
[2021-11-10 08:39] VITALS: BP 123/88
[2021-11-10 09:03] LABS: BASO % 0.6 % (0.0-1.0); EOS # 0.1 10*3/uL (0.0-0.4); EOS % 1.5 % (1.0-4.0); HEMATOCRIT 39.5 % (42.0-52.0); LYMPH # 0.6 10*3/uL (1.3-4.4); LYMPH % 8.2 % (27.0-41.0); MEAN CELL VOLUME 90.4 fl (80.0-94.0); MEAN CORPUSCULAR HGB 29.5 pg (27.0-31.0); MEAN CORPUSCULAR HGB CONC 32.7 g/dl (33.0-37.0); MEAN PLATELET VOLUME 9.9 fl (9.6-12.3); MONO # 0.3 10*3/uL (0.1-1.0); MONO % 4.5 % (3.0-9.0); NEUT # 5.6 10*3/uL (2.3-7.9); NEUT % 84.6 % (47.0-73.0); PLATELET COUNT AUTOMATED 154 10*3/uL (130-400); RED BLOOD COUNT 4.37 10*6/uL (4.50-5.90); RED CELL DISTRI WIDTH 13.8 % (0-14.5); WHITE BLOOD COUNT 6.7 10*3/uL (4.8-10.8)
[2021-11-10 09:11] LABS: ACT PARTIAL THROMBO TIME 24.2 SECONDS (20.0-32.1); INTERNATIONAL NORM RATIO 0.9 (2.0-3.5)
[2021-11-10 09:24] LABS: ALKALINE PHOSPHATASE 87 U/L (45-117); BUN 25 mg/dl (7-24); CHLORIDE 111 mmol/L (98-107); CREATININE 1.09 mg/dL (0.70-1.30); LIPASE 80 U/L (73-393); POTASSIUM 4.1 mmol/L (3.5-5.1); SGOT/AST 25 IU/L (3-35); SGPT/ALT 34 U/L (12-78); SODIUM 137 mmol/L (136-145)
[2021-11-10 11:00] VITALS: BP 128/82
[2021-11-10 14:00] VITALS: BP 132/86
[2021-11-10 14:25] VITALS: BP 133/76
[2021-11-10] MEDS ORDERED: GABAPENTIN100 M2 PO (15:01)
[2021-11-10] MEDS ORDERED: INCRUSE ELLI62.5 MCG INH (15:07)
[2021-11-10 16:00] VITALS: BP 127/74
[2021-11-10 20:00] VITALS: BP 135/66
[2021-11-11] VITALS: BP 135/67
[2021-11-11 06:10] LABS: BUN 26 mg/dl (7-24); CHLORIDE 110 mmol/L (98-107); CREATININE 1.13 mg/dL (0.70-1.30); POTASSIUM 4.5 mmol/L (3.5-5.1); SODIUM 137 mmol/L (136-145)
[2021-11-11 08:00] VITALS: BP 152/80
[2021-11-11 12:00] VITALS: BP 132/67
[2021-11-11 16:00] VITALS: BP 112/62
[2021-11-11 20:00] VITALS: BP 100/65
[2021-11-12] VITALS: BP 136/77
[2021-11-12 08:00] VITALS: BP 106/62
[2021-11-12] MEDS ORDERED: VANCOMYCIN HCL250 MG PO (09:59)
[2021-11-12 12:00] VITALS: BP 134/88
[2021-11-12 16:00] VITALS: BP 124/88
== END 2021-11-12 18:19 ==
LOC: ED 08:32 → 4E 11:13 → EDHOLD 11:13 → 4E 13:44
PROVIDERS: Emergency Medicine; ADMIT Internal Medicine; ATTEND Internal Medicine
DX: A04.72 Enterocolitis due to Clostridium difficile, not specified as recurrent (principal); Z20.822 Contact with and (suspected) exposure to COVID-19; E86.0 Dehydration; R62.7 Adult failure to thrive; F32.9 Major depressive disorder, single episode, unspecified; I10 Essential (primary) hypertension; N40.0 Benign prostatic hyperplasia without lower urinary tract symptoms; R33.9 Retention of urine, unspecified; E03.9 Hypothyroidism, unspecified; Z79.899 Other long term (current) drug therapy

== ENCOUNTER 2022-12-05 16:43 | Emergency (ER) | payer MEDICARE ==
[~2022-12-05] VITALS: Ht 177.8 cm; Wt 112.0 kg
[~2022-12-05 16:43] MED LIST changes: +CEFUROXIME AXE250 MG PO; +DUTASTERIDE0.5 MG PO; +GABAPENTIN100 M2 PO; +INCRUSE ELLI62.5 MCG INH; +MEDROXYPROGESTE10 M1 PO; +NYSTATIN15 GM T; +TAMSULOSIN HCL0.4 MG PO; +VANCOMYCIN HCL250 MG PO
[2022-12-05 16:49] VITALS: BP 134/59
[2022-12-05 18:22] LABS: ALKALINE PHOSPHATASE 50 U/L (46-116); BUN 18 mg/dl (9-23); CHLORIDE 105 mmol/L (98-107); POTASSIUM 3.9 mmol/L (3.4-5.1); SGPT/ALT 17 U/L (10-49); TOTAL PROTEIN 6.7 gm/dL (6.0-8.0)
[2022-12-05 18:38] LABS: BASO % 0.4 % (0.0-1.0); EOS # 0.2 10*3/uL (0.0-0.4); EOS % 2.2 % (1.0-4.0); HEMATOCRIT 34.7 % (42.0-52.0); LYMPH # 2.2 10*3/uL (1.3-4.4); LYMPH % 26.2 % (27.0-41.0); MEAN CELL VOLUME 89.7 fl (80.0-94.0); MEAN CORPUSCULAR HGB 29.5 pg (27.0-31.0); MEAN CORPUSCULAR HGB CONC 32.9 g/dl (33.0-37.0); MEAN PLATELET VOLUME 9.5 fl (9.6-12.3); MONO # 0.7 10*3/uL (0.1-1.0); MONO % 8.5 % (3.0-9.0); NEUT # 5.1 10*3/uL (2.3-7.9); NEUT % 62.2 % (47.0-73.0); PLATELET COUNT AUTOMATED 141 10*3/uL (130-400); RED BLOOD COUNT 3.87 10*6/uL (4.50-5.90); RED CELL DISTRI WIDTH 13.9 % (0-14.5); WHITE BLOOD COUNT 8.2 10*3/uL (4.8-10.8)
== END 2022-12-05 19:50 ==
LOC: ED 16:43
PROVIDERS: Internal Medicine
DX: M79.604 Pain in right leg (principal); M25.551 Pain in right hip; I10 Essential (primary) hypertension; J44.9 Chronic obstructive pulmonary disease, unspecified; Z88.8 Allergy status to other drugs, medicaments and biological substances; Z88.1 Allergy status to other antibiotic agents; Z88.6 Allergy status to analgesic agent; Z98.890 Other specified postprocedural states; Z59.00 Homelessness unspecified; F17.210 Nicotine dependence, cigarettes, uncomplicated

== ENCOUNTER → 2023-01-17 | Outpatient (CLI) | payer MEDICARE | END | disposition home or self-care (01) | LOC: ORTHO 01:23 | PROVIDERS: ATTEND Orthopaedic Surgery | DX: M25.511 Pain in right shoulder (principal); Z96.611 Presence of right artificial shoulder joint ==

== ENCOUNTER → 2023-02-16 | Outpatient (CLI) | payer MEDICARE, OTHER | END | disposition home or self-care (01) | LOC: NM 02-09 10:00 | PROVIDERS: ATTEND Orthopaedic Surgery | DX: Z96.611 Presence of right artificial shoulder joint (principal) ==

== ENCOUNTER 2023-03-12 20:42 | Inpatient (IN) | payer OTHER ==
[~2023-03-12] VITALS: Ht 177.8 cm; Wt 114.1 kg
[2023-03-12 20:50] VITALS: BP 124/53
[2023-03-12 21:04] LABS: BASO # 0.1 10*3/uL (0.0-0.1); BASO % 0.7 % (0.0-1.0); EOS # 0.2 10*3/uL (0.0-0.4); EOS % 2.7 % (1.0-4.0); HEMATOCRIT 34.5 % (42.0-52.0); LYMPH # 2.4 10*3/uL (1.3-4.4); LYMPH % 31.1 % (27.0-41.0); MEAN CELL VOLUME 91.3 fl (80.0-94.0); MEAN CORPUSCULAR HGB 30.2 pg (27.0-31.0); MEAN PLATELET VOLUME 9.3 fl (9.6-12.3); MONO # 0.6 10*3/uL (0.1-1.0); MONO % 8.4 % (3.0-9.0); NEUT # 4.3 10*3/uL (2.3-7.9); NEUT % 56.4 % (47.0-73.0); PLATELET COUNT AUTOMATED 152 10*3/uL (130-400); RED BLOOD COUNT 3.78 10*6/uL (4.50-5.90); RED CELL DISTRI WIDTH 14.1 % (0-14.5); WHITE BLOOD COUNT 7.7 10*3/uL (4.8-10.8)
[2023-03-12 21:15] LABS: ACT PARTIAL THROMBO TIME 26.7 SECONDS (20.0-32.1)
[2023-03-12 21:28] LABS: ALKALINE PHOSPHATASE 45 U/L (46-116); BUN 26 mg/dl (9-23); CHLORIDE 107 mmol/L (98-107); LIPASE 35 U/L (12-53); POTASSIUM 4.3 mmol/L (3.4-5.1); SGPT/ALT 24 U/L (10-49); TOTAL PROTEIN 6.2 gm/dL (6.0-8.0); URIC ACID 4.5 mg/dL (3.7-9.2)
[2023-03-12 21:57] VITALS: BP 129/60
[2023-03-12 23:08] VITALS: BP 122/84
[2023-03-13 07:55] LABS: BILIRUBIN Negative (Negative); BLOOD Negative (Negative); CLARITY Clear (Clear); COLOR Yellow (Yellow); GLUCOSE Negative (Negative); KETONE Negative (Negative); LEUKO ESTERASE Negative (Negative); NITRITE Negative (Negative); PH 5.5 (4.5-8.0); SPECIFIC GRAVITY >= 1.030 (1.001-1.030); UROBILINOGEN 0.2 E.U./dl (0.0-1.0)
[2023-03-13] MEDS ORDERED: TYLENOL EXTRA500 M2 PO (07:55)
[2023-03-13] MEDS ORDERED: CLARITIN10 MG PO (07:56)
[2023-03-13] MEDS ORDERED: BISACODYL10 MG R (07:56)
[2023-03-13] MEDS ORDERED: FLOMAX0.4 MG PO (07:57)
[2023-03-13 08:00] VITALS: BP 142/70
[2023-03-13] MEDS ORDERED: VITAMIN D350 MC2 PO (08:01)
[2023-03-13] MEDS ORDERED: CICLOPIROX T (08:02)
[2023-03-13 08:04] LABS: BACTERIA TRACE; WBC 0-2 wbc/hpf (0-5)
[2023-03-13] MEDS ORDERED: FLEET ENEMA 13133 ML R (08:04)
[2023-03-13] MEDS ORDERED: MILK OF MA400 MG/52 PO (08:05)
[2023-03-13] MEDS ORDERED: COLCHICINE0.6 M2 PO (08:19)
[2023-03-13] MEDS ORDERED: PIPERACIL-TA3.375 G1 IV (08:19)
[2023-03-13] MEDS ORDERED: KETOROLAC 30 MG/1 ML IV (08:20)
[2023-03-13 11:30] VITALS: BP 1423/77
[2023-03-13 13:45] VITALS: BP 153/78
[2023-03-13 17:25] VITALS: BP 156/73
[2023-03-13 17:36] VITALS: BP 148/71
[2023-03-13 20:00] VITALS: BP 110/92
[2023-03-14] VITALS: BP 144/58
[2023-03-14 07:22] LABS: BUN 15 mg/dl (9-23); CHLORIDE 106 mmol/L (98-107); POTASSIUM 4.7 mmol/L (3.4-5.1)
[2023-03-14 08:00] VITALS: BP 153/63
[2023-03-14 12:00] VITALS: BP 118/75
[2023-03-14 16:00] VITALS: BP 113/74
[2023-03-14 20:00] VITALS: BP 138/72
[2023-03-15] VITALS: BP 126/47
[2023-03-15 07:15] LABS: BUN 19 mg/dl (9-23); CHLORIDE 106 mmol/L (98-107); POTASSIUM 4.7 mmol/L (3.4-5.1)
[2023-03-15 08:00] VITALS: BP 118/64
[2023-03-15] MEDS ORDERED: AMOX-CLAV 875-1 EACH PO (09:44)
[2023-03-15 12:00] VITALS: BP 134/72
== END 2023-03-15 15:03 | DRG 603 ==
LOC: ED 20:42 → 4E 23:36 → EDHOLD 23:36 → 4E 03-13 17:26
PROVIDERS: Internal Medicine; ADMIT Internal Medicine; ATTEND Internal Medicine
DX: L03.115 Cellulitis of right lower limb (principal); F33.1 Major depressive disorder, recurrent, moderate; F41.1 Generalized anxiety disorder; E03.9 Hypothyroidism, unspecified; I10 Essential (primary) hypertension; R33.8 Other retention of urine; N40.1 Benign prostatic hyperplasia with lower urinary tract symptoms; Z66 Do not resuscitate; R62.7 Adult failure to thrive; Z68.36 Body mass index [BMI] 36.0-36.9, adult; Z88.6 Allergy status to analgesic agent; Z88.1 Allergy status to other antibiotic agents; Z88.8 Allergy status to other drugs, medicaments and biological substances; Z51.5 Encounter for palliative care; Z82.49 Family history of ischemic heart disease and other diseases of the circulatory system; M15.9 Polyosteoarthritis, unspecified

== ENCOUNTER → 2023-03-23 | Outpatient (CLI) | payer OTHER ==
[~2023-03-23] MED LIST changes: +AMOX-CLAV 875-1 EACH PO; +BISACODYL10 MG R; +CICLOPIROX T; +COLCHICINE0.6 M2 PO; +FLEET ENEMA 13133 ML R; +KETOROLAC 30 MG/1 ML IV; +MILK OF MA400 MG/52 PO; +PIPERACIL-TA3.375 G1 IV; +TYLENOL EXTRA500 M2 PO; +VITAMIN D350 MC2 PO
== END | disposition home or self-care (01) ==
LOC: ORTHO 01:13
PROVIDERS: ATTEND Orthopaedic Surgery
DX: M17.11 Unilateral primary osteoarthritis, right knee (principal); M71.21 Synovial cyst of popliteal space [Baker], right knee